=== PATIENT | female | born 1955 | race Caucasian/White ===

== ENCOUNTER 2019-12-07 10:24 | Day surgery (SDC) | payer BC, OTHER ==
[~2019-12-07 10:24] MED LIST: Lactated Ringers 1,000 ML IV SCH
[2019-12-07] MEDS ORDERED: fentaNYL 100 MCG/2 ML SDV ONE (11:32)
[2019-12-07] MEDS ORDERED: Propofol 200 MG/20 ML SDV ONE ×2 (11:33→12:33)
--- NOTE | 2019-12-08 13:34 | OR ---
PRE-OPERATIVE DIAGNOSES: 1. Positive family history of colon cancer and positive family history of colon polyps. The patient's last colonoscopies were in 2006 and 2011. 2. Occasional constipation. POST-OPERATIVE DIAGNOSES: 1. 2 mm polyp at the entry to the cecum. This was removed using cold forceps. 2. Moderate left-sided diverticulosis. 3. Mild hemorrhoids, not acutely inflamed. PROCEDURE: Colonoscopy with polypectomy x1 using cold forceps. ANESTHESIA: Monitored anesthesia care. BOWEL PREP: Good. Kamilah is a 64-year-old female, who was brought to the endoscopy suite after discussing risks and benefits of the procedure. Informed consent was obtained for conscious sedation and colonoscopy with or without biopsy and/or polypectomy. We also discussed possibility of missed lesions. Pre-procedure exam was unremarkable. IV, oxygen, and monitors were placed. The patient was placed in the left lateral decubitus position. Sedation was administered and a digital rectal exam was performed and revealed some mild hemorrhoids, not acutely inflamed. Colonoscope was passed into the rectum and slowly advanced all the way to the cecum. Cecum was viewed and photographed. There was a 2 mm polyp noted at the entry to the cecum. This was removed using cold forceps. The colonoscope was slowly withdrawn and the mucosa was closely observed in a direct circumferential manner. The ascending colon was unremarkable. The transverse colon was unremarkable. Descending and sigmoid colon revealed some moderate diverticulosis. Retroflexion was performed and rectal mucosa revealed some mild hemorrhoids, not acutely inflamed. Scope was removed. The patient tolerated the procedure well. The patient was monitored until that baseline status. Discharge instructions were reviewed and the patient was discharged in good condition. COMPLICATIONS: None. TOTAL TIME: 25 minutes. ESTIMATED BLOOD LOSS: About 1 mL. RECOMMENDATIONS/FOLLOW-UP: We will await results of path report to determine ideal followup interval. I would like to kindly thank Dr. Carcamo for this referral. DMB: 12/07/2019 13:34:46 MODL: 12/07/2019 19:04:09 /[id number]
== END 2019-12-07 14:15 | disposition home or self-care (01) ==
LOC: VM.SDS 10:24
PROVIDERS: ATTEND Family Medicine
DX: Z12.11 Encounter for screening for malignant neoplasm of colon (principal); D12.0 Benign neoplasm of cecum; K57.30 Diverticulosis of large intestine without perforation or abscess without bleeding; K64.9 Unspecified hemorrhoids; E78.00 Pure hypercholesterolemia, unspecified; F41.9 Anxiety disorder, unspecified; Z11.59 Encounter for screening for other viral diseases; Z88.0 Allergy status to penicillin; Z88.1 Allergy status to other antibiotic agents; Z88.2 Allergy status to sulfonamides; Z80.0 Family history of malignant neoplasm of digestive organs; Z86.010 Personal history of colon polyps; Z98.890 Other specified postprocedural states; Z79.899 Other long term (current) drug therapy
CPT/HCPCS: 00811; 45380; 87635; J2704; J3010; J7120; U0002

== ENCOUNTER 2025-01-11 12:33 | Day surgery (SDC) | payer BC ==
[2025-01-11] MEDS ORDERED: Propofol 200 MG/20 ML SDV ONE ×2 (12:38→14:10)
[2025-01-11] MEDS ORDERED: fentaNYL 100 MCG/2 ML SDV ONE (12:39)
[2025-01-11] MEDS: Lactated Ringers 1,000 ML IV SCH (12:42)
== END 2025-01-11 15:14 | disposition home or self-care (01) ==
LOC: VM.SDS 12:33
PROVIDERS: ATTEND Family Medicine
DX: Z12.11 Encounter for screening for malignant neoplasm of colon (principal); K52.9 Noninfective gastroenteritis and colitis, unspecified; K57.30 Diverticulosis of large intestine without perforation or abscess without bleeding; K62.89 Other specified diseases of anus and rectum; E78.00 Pure hypercholesterolemia, unspecified; Z80.0 Family history of malignant neoplasm of digestive organs; Z88.0 Allergy status to penicillin; Z88.8 Allergy status to other drugs, medicaments and biological substances; Z88.2 Allergy status to sulfonamides; Z79.84 Long term (current) use of oral hypoglycemic drugs; Z79.899 Other long term (current) drug therapy; Z86.0100 Personal history of colon polyps, unspecified
CPT/HCPCS: 00811; J2704; J3010; J7120